=== PATIENT | female | born 1970 | race Caucasian/White ===

== ENCOUNTER 2018-05-03 12:18 | Emergency (ER) | payer BC ==
[~2018-05-03] VITALS: Ht 154.9 cm; Wt 45.5 kg
[2018-05-03 12:25] VITALS: BP 127/84
== END 2018-05-03 13:17 | disposition home or self-care (01) ==
LOC: ED 13:11
DX: F41.1 Generalized anxiety disorder (principal); Z76.0 Encounter for issue of repeat prescription
CPT/HCPCS: 99283